=== PATIENT | female | born 1970 | race Caucasian/White ===

== ENCOUNTER 2020-04-22 09:04 | Outpatient (CLI) | payer BC | END 2020-04-22 23:59 | disposition home or self-care (01) | LOC: RAD 09:04 | PROVIDERS: ATTEND Psychiatry & Neurology Neurology | DX: R41.82 Altered mental status, unspecified (principal) | CPT/HCPCS: 95819 ==

== ENCOUNTER 2023-12-19 15:43 | Emergency (ER) | payer BC, MEDICAID ==
[~2023-12-19] VITALS: Ht 170.2 cm; Wt 59.1 kg
[2023-12-19] MEDS ORDERED: ketorolac trometh inj. 60 MG/2 ML VIAL IM ONE (16:25)
[2023-12-19] MEDS ORDERED: ACET-1008 PO (17:26)
[2023-12-19 17:55] VITALS: BP 128/82; PULSE 67; TEMP 98; O2SAT 99
[2023-12-19 18:04] VITALS: RESP 16
== END 2023-12-19 19:05 | disposition home or self-care (01) ==
LOC: ER 15:44
DX: S92.534A Nondisplaced fracture of distal phalanx of right lesser toe(s), initial encounter for closed fracture (principal); X58.XXXA Exposure to other specified factors, initial encounter; Y93.89 Activity, other specified; Y92.89 Other specified places as the place of occurrence of the external cause; Y99.8 Other external cause status
CPT/HCPCS: 73630; 96372; 99284; J1885; L4360